=== PATIENT | male | born 1955 | race Caucasian/White ===

== ENCOUNTER 2017-06-12 08:56 | Day surgery (SDC) | payer OTHER ==
[2017-06-08 11:34] VITALS: BMI 24.8
[2017-06-12] MEDS ORDERED: PROPOFOL 20 ML ONE ×2 (09:56→10:22)
[2017-06-12 11:25] VITALS: TEMP 98.2
[2017-06-12 11:27] VITALS: BP 125/65; PULSE 77
--- NOTE | 2017-06-14 15:48 | PATH ---
Surgical Pathology Report Patient Name: YAEL MILLER [facility]. Rec. #: [id number] /Age/Gender: 1955 (Age: 61) / M Account: [id number] Location: Taken: 06/12/2017 Received: 06/12/2017 Reported: 06/14/2017 Physicians: Jake Miller M.D. Specimen(s) Received BX ANTRUM Clinical History GERD Gastritis Final Diagnosis ANTRUM, BIOPSY: MILD CHRONIC GASTRITIS. IMMUNOSTAIN IS NEGATIVE FOR H PYLORI ORGANISMS. Electronically Signed Gaby Armenta M.D. Gross Description Received in formalin, labeled "antrum" are 2 grande, irregular portions of soft tissue measuring 0.2 and 0.3 cm. in greatest dimension. The specimens are submitted in toto in one cassette. 06/13/201706/13/2017
== END 2017-06-12 11:20 | disposition home or self-care (01) ==
LOC: FASU-ENDO 08:56
PROVIDERS: ATTEND Internal Medicine Gastroenterology
PROC: 0DB68ZX Excision of Stomach, Via Natural or Artificial Opening Endoscopic, Diagnostic (ICD-10-PCS; principal; 2017-06-12 10:26)
DX: K29.50 Unspecified chronic gastritis without bleeding (principal)
CPT/HCPCS: 88305-TC; 88342-TC

== ENCOUNTER 2024-09-30 04:59 | Day surgery (SDC) | payer OTHER ==
[2024-09-23 11:37] VITALS: BMI 24.4
[2024-09-30 09:33] LABS: HEMATOCRIT 22.6 % (35.4-49); HEMOGLOBIN 7.7 GM/dL (11.7-16.9); MCH 30.1 pg (25.7-33.7); MEAN CELL VOLUME 88.3 fl (80-96); MEAN PLT VOLUME 11.2 fl (7.5-11.1); PLATELET COUNT 39 10^3/uL (134-434); RBC 2.56 M/mm3 (4.00-5.60); RDW 19.5 % (11.9-15.9)
[2024-09-30 09:35] LABS: INR 1.25 (0.83-1.09)
[2024-09-30 09:43] LABS: WHITE BLOOD COUNT 1.3 K/mm3 (4.0-10.0)
[2024-09-30] MEDS ORDERED: FENTANYL CITRATE/PF 50 MCG/ML VIAL ONE (10:19)
[2024-09-30] MEDS ORDERED: MIDAZOLAM HCL 2 MG/2 ML SINGLE DOSE VIAL ONE (10:19)
[2024-09-30] MEDS: FENTANYL CITRATE/PF 50 MCG/ML VIAL IVPUSH ONE (10:42)
[2024-09-30] MEDS: MIDAZOLAM HCL 2 MG/2 ML SINGLE DOSE VIAL IVPUSH ONE (10:42)
[2024-09-30 10:47] LABS: ANISOCYTOSIS 1+; MACROCYTOSIS 0
[2024-09-30 12:16] VITALS: RESP 20; TEMP 97.1
[2024-09-30 12:30] VITALS: BP 140/68; PULSE 78
== END 2024-09-30 13:05 | disposition home or self-care (01) ==
LOC: JRADIR 04:59
PROVIDERS: ATTEND Internal Medicine Hematology & Oncology
PROC: 07DR3ZX Extraction of Iliac Bone Marrow, Percutaneous Approach, Diagnostic (ICD-10-PCS; principal; 2024-09-30)
DX: D61.818 Other pancytopenia (principal)
CPT/HCPCS: 20225; 36415; 77012-TC; 82962; 85025; 85610; 88300-TC